=== PATIENT | male | born 1950 | race Caucasian/White ===

== ENCOUNTER 2018-07-26 19:11 | Emergency (ER) | payer MEDICARE ==
[~2018-07-26] VITALS: Ht 185.4 cm; Wt 75.0 kg
[2018-07-26 19:34] VITALS: BP 168/94
== END 2018-07-26 21:29 | disposition home or self-care (01) ==
LOC: ED 21:23
DX: M25.421 Effusion, right elbow (principal); I10 Essential (primary) hypertension; E78.5 Hyperlipidemia, unspecified; Z88.8 Allergy status to other drugs, medicaments and biological substances
CPT/HCPCS: 29105; 99284